=== PATIENT | female | born 1980 ===

== ENCOUNTER 2016-09-08 09:24 | Emergency (ER) | payer OTHER ==
[2016-09-08 09:33] VITALS: TEMP 97.9
[2016-09-08] MEDS ORDERED: Sodium Chloride 0.9% 1,000 ML IV ONE (10:01)
[2016-09-08] MEDS ORDERED: Iohexol 240 (50 ml) PO ONE (10:26)
[2016-09-08] MEDS ORDERED: Sodium Chloride 0.9% 1,000 ML ONE (10:30)
[2016-09-08 10:35] LABS: BASO # 0.1 K/uL (0.0-0.2); BASO % 0.7 % (0.0-2.0); EOS # 0.2 K/uL (0.0-0.7); EOS % 2.2 % (0.0-4.0); HEMATOCRIT 40.5 % (34.0-47.0); LYMPH # 1.5 K/uL (1.0-4.3); LYMPH % 19.2 % (20.0-40.0); MEAN CELL VOLUME 96.6 fL (81.0-99.0); MEAN CORPUSCULAR HEMOGLOBIN 31.9 pg (27.0-31.0); MEAN PLATELET VOLUME 9.8 fL (7.2-11.7); MONO # 0.5 K/uL (0.0-0.8); MONO % 6.8 % (0.0-10.0); NRBC % 0.1 % (0.0-2.0); RED CELL DISTRIBUTION WIDTH 13.1 % (11.5-14.5); WHITE BLOOD COUNT 7.7 K/uL (4.8-10.8)
[2016-09-08 10:39] LABS: CHLORIDE 103 mmol/L (98-107); POTASSIUM 4.2 mmol/L (3.6-5.2); SODIUM 139 mmol/L (132-148)
[2016-09-08 10:41] LABS: GFR AFRICAN-AMERICAN > 60; RBC URINE 1 /hpf (0-3); URINE BACTERIA FEW (<OCC); URINE BILIRUBIN NEGATIVE (NEGATIVE); URINE BLOOD NEGATIVE (NEGATIVE); URINE COLOR Yellow (YELLOW); URINE GLUCOSE (UA) NORMAL (Normal); URINE KETONE NEGATIVE (NEGATIVE); URINE LEUKOCYTE ESTERASE TRACE Leu/uL (Negative); URINE PROTEIN NEGATIVE (NEGATIVE); URINE UROBILINOGEN NORMAL mg/dL (0.2-1.0); WBC URINE 1 /hpf (0-5)
[2016-09-08 10:42] LABS: ALB/GLOB RATIO 1.2 (1.0-2.1); ALKALINE PHOSPHATASE 63 U/L (38-126); ALT/SGPT 21 U/L (9-52); AST/SGOT 20 U/L (14-36); BILIRUBIN,TOTAL 0.5 mg/dL (0.2-1.3); BLOOD UREA NITROGEN 12 mg/dL (7-17); CALCIUM 8.7 mg/dl (8.6-10.4); CARBON DIOXIDE 24 mmol/L (22-30); GLUCOSE,RANDOM 90 mg/dL (65-105); TOTAL PROTEIN 7.5 g/dL (6.3-8.3)
[2016-09-08] MEDS ORDERED: Iohexol 240 (50 ml) ONE (10:44)
--- NOTE | 2016-09-08 11:00 | C.PDOC ---
History Of Present Illness 36 yr old female presents to the ER with complaints of abdominal pain gradually worsening for the past 4 days. Patient states the pain is localized to the lower abdomen, right>left. Patient reports of vomiting last night, bilious but non bloody. Patient denies fever, chills, chest pain, SOB, nausea, diarrhea, constipation, dysuria, incontinence, weakness or numbness. Time Seen by Provider: 09/08/16 09:55 Chief Complaint (Nursing): Abdominal Pain History Per: Patient History/Exam Limitations: no limitations Onset/Duration Of Symptoms: Gradual (4 days) Current Symptoms Are (Timing): Still Present Location Of Pain/Discomfort: RLQ, LLQ Past Medical History Reviewed: Historical Data, Nursing Documentation, Vital Signs Vital Signs: Last Vital Signs Temp 97.9 F 09/08/16 09:32 Pulse 89 09/08/16 09:32 Resp 16 09/08/16 09:32 BP 111/82 09/08/16 09:32 Pulse Ox 99 09/08/16 13:23 Surgical History: Cholecystectomy Family History: States: No Known Family Hx - Social History Hx Alcohol Use: No Hx Substance Use: No - Immunization History Hx Tetanus Toxoid Vaccination: No Hx Influenza Vaccination: No Hx Pneumococcal Vaccination: No Review Of Systems Except As Marked, All Systems Reviewed And Found Negative. Constitutional: Negative for: Fever, Chills Cardiovascular: Negative for: Chest Pain Respiratory: Negative for: Shortness of Breath Gastrointestinal: Positive for: Vomiting, Abdominal Pain (Lower). Negative for : Nausea, Diarrhea, Constipation Genitourinary: Negative for: Dysuria, Incontinence Neurological: Negative for: Weakness, Numbness Physical Exam - Physical Exam Appears: Well, Non-toxic, No Acute Distress Skin: Warm, Dry, No Rash Head: Atraumatic, Normacephalic Eye(s): bilateral: Normal Inspection, PERRL, EOMI Oral Mucosa: Moist Throat: Normal, No Erythema, No Exudate, No Drooling Neck: Normal, Normal ROM, Supple Chest: Symmetrical, No Tenderness Cardiovascular: Rhythm Regular, No Murmur Respiratory: Normal Breath Sounds, No Rales, No Rhonchi, No Wheezing Gastrointestinal/Abdominal: Soft, Tenderness (Mild tenderness to bilateral quandrants), No Guarding, No Rebound, No Ascites Extremity: Normal ROM, No Swelling Neurological/Psych: Oriented x3, Normal Speech ED Course And Treatment - Laboratory Results Result Diagrams: 09/08/16 10:23 09/08/16 10:23 O2 Sat by Pulse Oximetry: 99 - CT Scan/US CT - Abd & Pelvis Other Rad Studies (CT/US): Read By Radiologist, Radiology Report Reviewed CT/US Interpretation: PROCEDURE: CT Abdomen and Pelvis with oral and IV contrast. HISTORY: lower abdominal pain (R>L). COMPARISON: None available. TECHNIQUE: Contiguous axial images of the abdomen and pelvis. Oral and IV contrast was administered. Coronal and Sagittal reformats generated and reviewed. Contrast dose: 100 cc Visipaque. Radiation dose: Total exam DLP = 434.39 mGy-cm. FINDINGS: LOWER THORAX: There is no visible consolidation, pleural effusion, or pneumothorax. LIVER: Hypoattenuation of the liver compatible with hepatic steatosis. GALLBLADDER AND BILE DUCTS: Cholecystectomy. PANCREAS: Unremarkable. SPLEEN: Unremarkable. ADRENALS: Unremarkable. KIDNEYS AND URETERS: The kidneys enhance symmetrically. No hydronephrosis or obstructing renal calculus. Nonobstructing 3 mm right upper pole renal calculus. Additional punctate scattered bilateral renal calculi. BLADDER: The urinary bladder appears unremarkable. REPRODUCTIVE: Uterus is present. APPENDIX: The appendix appears within normal limits of caliber. No secondary signs of acute appendicitis. BOWEL: The stomach is nondistended. The bowel loops appear within normal limits of caliber without evidence of intestinal obstruction. PERITONEUM: No significant free fluid. No definite free air. LYMPH NODES: No bulky lymphadenopathy identified. VASCULATURE: No aortic aneurysm. BONES: No acute osseous abnormality is detected. OTHER FINDINGS: None. IMPRESSION: Hepatic steatosis. Cholecystectomy. Nonobstructing 3 mm right upper pole renal calculus. Additional punctate scattered bilateral renal calculi. Medical Decision Making Medical Decision Making: PLAN: * CT - Abd & Pelvis * CBC * HCG * Urinalysis * Pepcid IVP * Zofran IVP * Sodium Chloride IV 1:30 - Patient is feeling better. Labs and CT reviewed. Patient to be discharged with Rx and followup instructions. Disposition - Disposition Referrals: [facility] at [facility] [Outside] [facility] [Outside] Disposition: HOME/ ROUTINE Disposition Time: 13:30 Condition: IMPROVED Additional Instructions: Thank you for letting us take care of you today. Your provider was Dr. Mortensen. You were treated for gastritis. The emergency medical care you received today was directed at your acute symptoms. If you were prescribed any medication, please fill it and take as directed. It may take several days for your symptoms to resolve. Return to the Emergency Department if your symptoms worsen, do not improve, or if you have any other problems. Please contact your doctor or call one of the physicians/clinics you have been referred to that are listed on the Patient Visit Information form that is included in your discharge packet. Bring any paperwork you were given at discharge with you along with any medications you are taking to your follow up visit. Our treatment cannot replace ongoing medical care by a primary care provider (PCP) outside of the emergency department. Thank you for allowing the [facility] team to be part of your care today. Follow up with the clinic in 3-4 days to be re-evaluated. Prescriptions: Ranitidine HCl [Zantac] 150 mg PO BID #20 tablet Ondansetron ODT [Zofran ODT] 4 mg PO Q8 PRN #20 odt PRN Reason: Nausea/Vomiting Instructions: Gastritis (ED) Forms: Gen Discharge Inst Austrian Print Language: LATVIAN - Clinical Impression Clinical Impression: Gastritis - Scribe Statement The provider has reviewed the documentation as recorded by the Christiana Begum Provider Attestation: All medical record entries made by the Junioribveena were at my direction and personally dictated by me. I have reviewed the chart and agree that the record accurately reflects my personal performance of the history, physical exam, medical decision making, and the department course for this patient. I have also personally directed, reviewed, and agree with the discharge instructions and disposition.
[2016-09-08] MEDS ORDERED: Iodixanol 320 MG/ML 100 ML BOTTLE IV ONE (11:45)
--- NOTE | 2016-09-08 13:22 | CT ---
PROCEDURE: CT Abdomen and Pelvis with oral and IV contrast. HISTORY: lower abdominal pain (R>L) COMPARISON: None available. TECHNIQUE: Contiguous axial images of the abdomen and pelvis. Oral and IV contrast was administered. Coronal and Sagittal reformats generated and reviewed. Contrast dose: 100 cc Visipaque Radiation dose: Total exam DLP = 434.39 mGy-cm. FINDINGS: LOWER THORAX: There is no visible consolidation, pleural effusion, or pneumothorax. LIVER: Hypoattenuation of the liver compatible with hepatic steatosis. GALLBLADDER AND BILE DUCTS: Cholecystectomy. PANCREAS: Unremarkable. SPLEEN: Unremarkable. ADRENALS: Unremarkable. KIDNEYS AND URETERS: The kidneys enhance symmetrically. No hydronephrosis or obstructing renal calculus. Nonobstructing 3 mm right upper pole renal calculus. Additional punctate scattered bilateral renal calculi. BLADDER: The urinary bladder appears unremarkable. REPRODUCTIVE: Uterus is present. APPENDIX: The appendix appears within normal limits of caliber. No secondary signs of acute appendicitis. BOWEL: The stomach is nondistended. The bowel loops appear within normal limits of caliber without evidence of intestinal obstruction. PERITONEUM: No significant free fluid. No definite free air. LYMPH NODES: No bulky lymphadenopathy identified. VASCULATURE: No aortic aneurysm. BONES: No acute osseous abnormality is detected. OTHER FINDINGS: None. IMPRESSION: Hepatic steatosis. Cholecystectomy. Nonobstructing 3 mm right upper pole renal calculus. Additional punctate scattered bilateral renal calculi.
[2016-09-08 14:01] VITALS: BP 115/80; PULSE 73; RESP 18; O2SAT 100
== END 2016-09-08 14:00 | disposition home or self-care (01) ==
LOC: C.ER 09:24
DX: K29.70 Gastritis, unspecified, without bleeding (principal)
CPT/HCPCS: 74177; 80053; 81001; 83690; 84703; 85025; 87086; 96361; 96374; 96375; 99285; J2405; J7040; Q9966; Q9967

== ENCOUNTER 2016-11-11 21:36 | Emergency (ER) | payer SELFPAY ==
[2016-11-11 21:55] VITALS: BP 109/75; PULSE 68; RESP 20; TEMP 98.4; O2SAT 98
[2016-11-11] MEDS ORDERED: Tmp-Smz 800 mg-160 mg DS Tab PO STA (22:22)
[2016-11-11] MEDS ORDERED: Tmp-Smz 800 mg-160 mg DS Tab ONE (22:31)
--- NOTE | 2016-11-11 22:40 | C.PDOC ---
History Of Present Illness Patient is a 36 year old female who presents to the ER with a complaint of a painful red lump to her right breast for the past 2-3 days. Patient denies any trauma, fever, drainage or recent breast feeding. Time Seen by Provider: 11/11/16 21:57 Chief Complaint (Nursing): Abnormal Skin Integrity History Per: Patient History/Exam Limitations: no limitations Onset/Duration Of Symptoms: Days (2-3) Current Symptoms Are (Timing): Still Present Location Of Injury: Right: Chest Quality Of Symptoms: Other (Red lump) Recent travel outside of the [place]: No Past Medical History Reviewed: Historical Data, Nursing Documentation, Vital Signs Vital Signs: Last Vital Signs Temp 98.4 F 11/11/16 21:48 Pulse 68 11/11/16 21:48 Resp 20 11/11/16 21:48 BP 109/75 11/11/16 21:48 Pulse Ox 98 11/12/16 00:01 - Medical History PMH: No Chronic Diseases Surgical History: Cholecystectomy Family History: States: Unknown Family Hx - Social History Hx Alcohol Use: No Hx Substance Use: No - Immunization History Hx Tetanus Toxoid Vaccination: No Hx Influenza Vaccination: No Hx Pneumococcal Vaccination: No Review Of Systems Constitutional: Negative for: Fever Skin: Positive for: Other ((+) for red lump on right breast. (-) for drainage.) Physical Exam - Physical Exam Appears: Non-toxic Skin: Normal Color, Warm, Dry, No Rash Head: Atraumatic, Normacephalic Eye(s): bilateral: Normal Inspection, PERRL, EOMI Oral Mucosa: Moist Neck: Normal ROM Chest: Other (1cm area of erythema with mild swelling and tenderness at 9'o clock position of right breast) Cardiovascular: Rhythm Regular Respiratory: Normal Breath Sounds Back: Normal Inspection Neurological/Psych: Oriented x3, Normal Speech, Normal Cognition, Normal Motor Gait: Steady ED Course And Treatment O2 Sat by Pulse Oximetry: 98 (Room air) Pulse Ox Interpretation: Normal Progress Note: Keflex and bactrim administered. Medical Decision Making Medical Decision Making: There is no fluctuance at this time. This is most likely an early abscess, will cover with antibiotics. Disposition - Disposition Referrals: [facility] [Outside] Disposition: HOME/ ROUTINE Disposition Time: 22:40 Condition: GOOD Additional Instructions: Apply warm compresses to the region 4-5 times per day for 4 days. Follow up with the medical doctor within 1-2 days. return if worsened. Prescriptions: Acetaminophen [Tylenol] 325 mg PO Q6 PRN #30 tab PRN Reason: Pain, Mild (1-3) Cephalexin [cephalexin] 500 mg PO BID #14 cap Sulfamethoxazole/Trimethoprim [Bactrim DS 800 mg-160 mg] 1 tab PO BID #14 tab Instructions: Abscess (GEN) Print Language: CROATIAN - Clinical Impression Clinical Impression: Abscess - Scribe Statement The provider has reviewed the documentation as recorded by the Scribe Ryan Campoverde All medical record entries made by the Junioribveena were at my direction and personally dictated by me. I have reviewed the chart and agree that the record accurately reflects my personal performance of the history, physical exam, medical decision making, and the department course for this patient. I have also personally directed, reviewed, and agree with the discharge instructions and disposition.
== END 2016-11-11 22:55 | disposition home or self-care (01) ==
LOC: C.ER 21:36
DX: N61.1 Abscess of the breast and nipple (principal)

== ENCOUNTER 2017-03-07 13:29 | Emergency (ER) | payer OTHER ==
[2017-03-07 13:29] VITALS: BMI 30.4
[2017-03-07] MEDS ORDERED: Sodium Chloride 0.9% 1,000 ML IV ONE (14:48)
--- NOTE | 2017-03-07 15:23 | C.PDOC ---
History Of Present Illness <Bella Martin - Last Filed: 03/07/17 18:11> <Sapphire Gao - Last Filed: 03/07/17 18:58> 36 year old female presents to the ED for evaluation of right-sided lower back pain that radiates to her right abdomen and down her right leg since yesterday. Patient reports taking Tylenol last night with transient relief. Patient reports history of similar episodes in the past, while she was being treated for kidney stones. She denies fever, chills, dysuria, urinary frequency, urinary /bowel incontinence, upper/lower extremity numbness/weakeners, or recent trauma /falls. (Bella Martin) History Per: Patient History/Exam Limitations: no limitations Onset/Duration Of Symptoms: Hrs Current Symptoms Are (Timing): Still Present Quality Of Discomfort: "Pain" Previous Symptoms: Back Pain Associated Symptoms: denies: Incontinence, New Weakness, New Numbness Additional History Per: Patient <Bella Martin - Last Filed: 03/07/17 18:11> <Sapphire Gao - Last Filed: 03/07/17 18:58> Time Seen by Provider: 03/07/17 14:35 Chief Complaint (Nursing): Back Pain Past Medical History Reviewed: Historical Data, Nursing Documentation, Vital Signs - Medical History PMH: Gall Bladder Disease Surgical History: Cholecystectomy (2010) Family History: States: Unknown Family Hx - Social History Hx Alcohol Use: No Hx Substance Use: No - Immunization History Hx Tetanus Toxoid Vaccination: No Hx Influenza Vaccination: No Hx Pneumococcal Vaccination: No <Bella Martin - Last Filed: 03/07/17 18:11> Vital Signs: Last Vital Signs Temp 97.8 F 03/07/17 17:42 Pulse 71 03/07/17 17:42 Resp 18 03/07/17 17:42 BP 125/87 03/07/17 17:42 Pulse Ox 98 03/07/17 18:11 Review Of Systems Constitutional: Negative for: Fever, Chills Gastrointestinal: Positive for: Abdominal Pain (right-sided ) Genitourinary: Negative for: Dysuria, Frequency Musculoskeletal: Positive for: Back Pain (right-sided, lower ), Leg Pain (right) Neurological: Negative for: Weakness, Numbness <Bella Martin - Last Filed: 03/07/17 18:11> Physical Exam - Physical Exam Appears: Non-toxic, No Acute Distress, Other (uncomfortable ) Skin: Normal Color, Warm, Dry Head: Atraumatic, Normacephalic Eye(s): bilateral: Normal Inspection Oral Mucosa: Moist Neck: Supple Chest: Symmetrical, No Deformity, No Tenderness Cardiovascular: Rhythm Regular Respiratory: Normal Breath Sounds, No Rales, No Rhonchi, No Wheezing Gastrointestinal/Abdominal: Soft, Tenderness (to right lower quadrant on palpation ), No Guarding, No Rebound Back: Paraspinal Tenderness (right-sided, paralumbar ) Extremity: Normal ROM, Tenderness (to right buttock ), No Calf Tenderness, Capillary Refill (less than 2 seconds ), No Deformity, No Swelling Neurological/Psych: Oriented x3, Normal Speech, Normal Cognition, Normal Sensation Gait: Steady <Bella Martin - Last Filed: 03/07/17 18:11> ED Course And Treatment - Laboratory Results Result Diagrams: 03/07/17 15:23 03/07/17 15:23 O2 Sat by Pulse Oximetry: 98 (on RA) Pulse Ox Interpretation: Normal Progress Note: bloodwork, urinalysis, CT A/P ordered and reviewed. Flexeril PO, Morphine IVP, Zofran IVP, and IV Fluids administered. Onre-evalaution, pt notes pain improved. Does not want pain medication. On re-evaluation, gait steady. Tolerating po. Afebrile. No urinary or bowel incontinence. Discussed with Pt CT resutls and isntructed to follow up with PMD in 1-2 days. [employer] comp used to ensure understanding. <Bella Martin - Last Filed: 03/07/17 18:11> - Laboratory Results Result Diagrams: 03/07/17 15:23 03/07/17 15:23 <Sapphire Gao - Last Filed: 03/07/17 18:58> Disposition - Disposition Disposition Time: 17:12 <Bella Martin - Last Filed: 03/07/17 18:11> <Sapphire Gao - Last Filed: 03/07/17 18:58> - Disposition Referrals: [facility] at [facility] [Outside] Disposition: HOME/ ROUTINE Condition: STABLE Additional Instructions: Vaya a de la rosa mdico o la clnica en 2-5 joyce sin falta, para mas evaluacin. [place] los medicamentos eb indicado. Volver a la mai de emergencia en cualquier momento si los sntomas persisten o empeoran. 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 - Scribe Statement The provider has reviewed the documentation as recorded by the Scribe (Viridiana Bucio) <Bella Martin - Last Filed: 03/07/17 18:11> <Sapphire Gao - Last Filed: 03/07/17 18:58> - Scribe Statement All medical record entries made by the Scribe were at my direction and personally dictated by me. I have reviewed the chart and agree that the record accurately reflects my personal performance of the history, physical exam, medical decision making, and the department course for this patient. I have also personally directed, reviewed, and agree with the discharge instructions and disposition. (Bella Martin)
[2017-03-07 15:32] LABS: BASO % 0.5 % (0.0-2.0); EOS # 0.1 K/uL (0.0-0.7); EOS % 1.5 % (0.0-4.0); HEMATOCRIT 40.6 % (34.0-47.0); LYMPH # 1.7 K/uL (1.0-4.3); MEAN CELL VOLUME 96.3 fL (81.0-99.0); MEAN CORPUSCULAR HEMOGLOBIN 33.3 pg (27.0-31.0); MEAN CORPUSCULAR HGB CONC 34.6 g/dL (33.0-37.0); MEAN PLATELET VOLUME 9.4 fL (7.2-11.7); MONO # 0.4 K/uL (0.0-0.8); MONO % 6.8 % (0.0-10.0); RED CELL DISTRIBUTION WIDTH 12.6 % (11.5-14.5)
[2017-03-07 15:38] LABS: RBC URINE < 1 /hpf (0-3); URINE BACTERIA RARE (<OCC); URINE BILIRUBIN NEGATIVE (NEGATIVE); URINE BLOOD NEGATIVE (NEGATIVE); URINE COLOR Yellow (YELLOW); URINE GLUCOSE (UA) NORMAL (Normal); URINE KETONE NEGATIVE (NEGATIVE); URINE LEUKOCYTE ESTERASE NEG Leu/uL (Negative); URINE PROTEIN NEGATIVE (NEGATIVE); URINE UROBILINOGEN NORMAL mg/dL (0.2-1.0); WBC URINE 1 /hpf (0-5)
[2017-03-07] MEDS ORDERED: Sodium Chloride 0.9% 1,000 ML ONE (15:38)
[2017-03-07 15:47] LABS: CHLORIDE 101 mmol/L (98-107); POTASSIUM 3.8 mmol/L (3.6-5.2); SODIUM 134 mmol/L (132-148)
[2017-03-07 15:49] LABS: AST/SGOT 41 U/L (14-36); BILIRUBIN,TOTAL 0.5 mg/dL (0.2-1.3); CARBON DIOXIDE 22 mmol/L (22-30); GFR AFRICAN-AMERICAN > 60
[2017-03-07 15:50] LABS: ALB/GLOB RATIO 1.3 (1.0-2.1); ALKALINE PHOSPHATASE 58 U/L (38-126); ALT/SGPT 46 U/L (9-52); BLOOD UREA NITROGEN 12 mg/dL (7-17); CALCIUM 9.4 mg/dl (8.6-10.4); GLUCOSE,RANDOM 82 mg/dL (65-105); TOTAL PROTEIN 8.1 g/dL (6.3-8.3)
--- NOTE | 2017-03-07 17:07 | CT ---
PROCEDURE: CT Abdomen and Pelvis without Oral or IV contrast. HISTORY: right side flank pain COMPARISON: CT abdomen and pelvis with contrast performed 09/08/16. TECHNIQUE: Contiguous axial images of the abdomen and pelvis. No oral or IV contrast administered. Coronal and Sagittal reformats generated and reviewed. Radiation dose: Total exam DLP = 410.09 mGy-cm. This CT exam was performed using one or more of the following dose reduction techniques: Automated exposure control, adjustment of the mA and/or kV according to patient size, and/or use of iterative reconstruction technique. FINDINGS: There is limited evaluation of the solid organs without the administration of IV contrast. LOWER THORAX: No visible consolidation, pleural effusion, or pneumothorax. LIVER: Unremarkable unenhanced appearance. GALLBLADDER AND BILE DUCTS: Cholecystectomy. PANCREAS: Unremarkable unenhanced appearance. SPLEEN: Unremarkable unenhanced appearance. ADRENALS: Unremarkable unenhanced appearance. KIDNEYS AND URETERS: No hydronephrosis or obstructing renal calculus. Nonobstructing bilateral renal calculi. BLADDER: The urinary bladder appears unremarkable. REPRODUCTIVE: Uterus is present. APPENDIX: The appendix appears within normal limits of caliber. No secondary signs of acute appendicitis. BOWEL: The stomach is nondistended. Lack of oral contrast limits evaluation for bowel pathology. The bowel loops appear within normal limits of caliber without evidence of intestinal obstruction. PERITONEUM: No significant free fluid. No definite free air. LYMPH NODES: No bulky lymphadenopathy identified. VASCULATURE: No aortic aneurysm. BONES: Degenerative changes of the spine. OTHER FINDINGS: None. IMPRESSION: Nonobstructing bilateral renal calculi. Cholecystectomy.
[2017-03-07 17:43] VITALS: BP 125/87; PULSE 71; RESP 18; TEMP 97.8
[2017-03-07 18:11] VITALS: O2SAT 98
== END 2017-03-07 17:43 | disposition home or self-care (01) ==
LOC: C.ER 13:29
DX: M54.5 Low back pain (principal)
CPT/HCPCS: 74176; 80053; 81001; 83690; 84703; 85025; 96361; 96374; 96375; 99284; J2270; J2405; J7040